=== PATIENT | female | born 1935 | race Two or more races ===

== ENCOUNTER 2019-10-27 05:55 | Inpatient (IN) | payer OTHER ==
[2019-10-25 11:46] VITALS: BMI 32.3
[2019-10-27] MEDS ORDERED: LOCK ITEM NR ONE ×2 (06:36→06:45)
[2019-10-27] MEDS ORDERED: MIDAZOLAM HCL 2 MG/2 ML SINGLE DOSE VIAL ONE (06:49)
[2019-10-27] MEDS ORDERED: SODIUM CHLORIDE 0.9% P/F 10 ML VIAL IJ ONE (06:49)
[2019-10-27] MEDS ORDERED: BUPIVACAINE LIPOSOME/PF (EXPAREL) 266 MG/20 ML VIAL ONE (06:49)
[2019-10-27] MEDS ORDERED: EPHEDRINE SULFATE/0.9% NACL/PF 50 MG/10 ML SYRINGE NR ONE (09:20)
[2019-10-27] MEDS ORDERED: PROPOFOL 20 ML ONE ×2 (09:20)
[2019-10-27] MEDS ORDERED: ROCURONIUM BROMIDE 50 MG/5 ML SYRINGE ONE (09:20)
[2019-10-27] MEDS ORDERED: TRANEXAMIC ACID 1000 MG/10 ML VIAL ONE ×2 (09:58)
[2019-10-27] MEDS ORDERED: SEVOFLURANE 250 ML BTL ONE (10:04)
[2019-10-27] MEDS ORDERED: ESMOLOL HCL 100,000 MCG/10 ML VIAL ONE (10:05)
[2019-10-27] MEDS ORDERED: KETOROLAC TROMETHAMINE 30 MG/1 ML VIAL ONE (12:02)
[2019-10-27] MEDS ORDERED: DEXAMETHASONE SOD PHOSPHATE 4 MG/1 ML VIAL ONE (12:02)
[2019-10-27] MEDS ORDERED: VANCOMYCIN 1,000 MG VIAL (RESTRICTED TO ID ONLY) ONE (12:02)
[2019-10-27] MEDS ORDERED: ceFAZolin SODIUM 1 GM VIAL ONE (12:02)
[2019-10-27] MEDS ORDERED: ONDANSETRON 4 MG/2 ML VIAL ONE (12:02)
[2019-10-27] MEDS ORDERED: BENZOIN/ALOE VERA/STORAX/TOLU 58 ML BOTTLE ONE (12:05)
[2019-10-27] MEDS ORDERED: MAG HYDROX/AL HYDROX/SIMETH 30 ML UNIT-DOSE CUP PO PRN (12:10)
[2019-10-27] MEDS ORDERED: ONDANSETRON 4 MG/2 ML VIAL IVPUSH PRN ×2 (12:10→12:52)
[2019-10-27] MEDS ORDERED: MAGNESIUM HYDROX 2400MG/30ML ORAL SUSPENSION 30 ML CUP PO PRN (12:10)
[2019-10-27] MEDS ORDERED: NEOSTIGMINE METHYLSULFATE 0.5 MG/ML - 10 ML MDV ONE (12:14)
[2019-10-27] MEDS ORDERED: LACTATED RINGERS SOLUTION 1,000 ML IV SCH (12:15)
--- NOTE | 2019-10-27 12:19 | PN ---
Progress Note (short form) - Note Progress Note: 84F s/p revision RIGHT total knee replacement POD #0. -Pain control: per anesthesia team. -DVT PPx: -Chemical: ASA 81mg PO BID x 6 weeks. -Mechanical: CÉSAR's, SCD's. -Incentive spirometry q15 min. -PT/OT/Rehab, OOB. -WBAT RLE. -Antibiotics: Ancef q6h x 3 post op doses. -f/u post-op trial of void. -Diet as tolerated. -Keep dressing clean & dry. -Monitor drain output. -Care per medical hospitalist team. -f/u [facility] [place] office 7-10 days following hospital discharge; call for appointment; . -Will follow. Priyank Burris MD (Orthopaedic Surgery).
--- NOTE | 2019-10-27 12:20 | OP ---
Operative Note - Note: Operative Date: 10/27/19 Pre-Operative Diagnosis: Osteolysis and loosening right TKA Operation: Single stage revision right TKA all components except patellar button Implants: [place] as charted Post-Operative Diagnosis: Same as Pre-op Surgeon: Priyank Burris Seo Intern: Matti Burris Anesthesiologist/SENIOR ENERGY MARKET COORDINATOR: John Orozco Anesthesia: Spinal Specimens Removed: Implants, bone, soft tissue Estimated Blood Loss (mls): 0 Drains & Tubes with Location: 1 x deep HemoVac Operative Report Dictated: Yes
[2019-10-27] MEDS ORDERED: oxyCODONE HCL 5 MG TABLET PO PRN (12:52)
[2019-10-27] MEDS ORDERED: PROMETHAZINE HCL 25 MG/1 ML VIAL IVPUSH PRN (12:52)
--- NOTE | 2019-10-27 13:34 | HP ---
HISTORY OF PRESENT ILLNESS: 84 year-old female with a PMH significant for coronary artery disease, CHF, CVA, asthma, bilateral OA knees s/p bilateral knee replacements, now s/p single stage revision right TKA on 10/27/[address] Burris. Recent Travel: No PAST MEDICAL HISTORY: Coronary artery disease Asthma CVA CHF Bilateral osteoarthritis knees PAST SURGICAL HISTORY: Bilateral knee replacements THAI Social History: Smoking: never Alcohol: no Drugs: no Family history: Mother DM; brother kidney cancer; breast cancer on mother's side Allergies aspirin Allergy (Verified 10/27/19 07:06) DOESN'T TAKE DUE TO SICKLE CELL TRAIT HOME MEDICATIONS: Home Medications Medication Instructions Recorded Amlodipine Besylate [Norvasc -] 5 mg PO DAILY 10/25/19 Ca/D3/Mag Ox/Zinc/Sheep Sorter/Owen/Bor 1 each PO DAILY 10/25/19 [Calcium 600+D3 Plus Caplet] Folic Acid 1 mg PO DAILY 10/25/19 Multivitamin [Multivitamins] 1 each PO DAILY 10/25/19 REVIEW OF SYSTEMS CONSTITUTIONAL: Absent: fever, chills, diaphoresis, generalized weakness, malaise, loss of appetite, weight change HEENT: Absent: rhinorrhea, nasal congestion, throat pain, throat swelling, difficulty swallowing, mouth swelling, ear pain, eye pain, visual changes CARDIOVASCULAR: Absent: chest pain, syncope, palpitations, irregular heart rate, lightheadedness, peripheral edema RESPIRATORY: Absent: cough, shortness of breath, dyspnea with exertion, orthopnea, wheezing, stridor, hemoptysis GASTROINTESTINAL: Absent: abdominal pain, abdominal distension, nausea, vomiting, diarrhea, constipation, melena, hematochezia GENITOURINARY: Absent: dysuria, frequency, urgency, hesitancy, hematuria, flank pain, genital pain MUSCULOSKELETAL: Absent: myalgia, arthralgia, joint swelling, back pain, neck pain SKIN: Absent: rash, itching, pallor HEMATOLOGIC/IMMUNOLOGIC: Absent: easy bleeding, easy bruising, lymphadenopathy, frequent infections ENDOCRINE: Absent: unexplained weight gain, unexplained weight loss, heat intolerance, cold intolerance NEUROLOGIC: Absent: headache, focal weakness or paresthesias, dizziness, unsteady gait, seizure, mental status changes, bladder or bowel incontinence PSYCHIATRIC: Absent: anxiety, depression, suicidal or homicidal ideation, hallucinations. PHYSICAL EXAMINATION Vital Signs - 24 hr 10/27/19 10/27/19 10/27/19 07:07 12:45 12:50 Temperature 97.9 F 97.7 F Pulse Rate 61 76 72 Respiratory 16 17 12 Rate Blood Pressure 144/78 108/61 127/69 O2 Sat by Pulse 98 97 100 Oximetry (%) 10/27/19 10/27/19 10/27/19 12:55 13:00 13:15 Temperature Pulse Rate 77 76 76 Respiratory 12 14 13 Rate Blood Pressure 116/63 119/65 119/65 O2 Sat by Pulse 100 100 100 Oximetry (%) GENERAL: Awake, alert, and fully oriented, in no acute distress. HEAD: Normal with no signs of trauma. EYES: Pupils equal, round and reactive to light, extraocular movements intact, sclera anicteric, conjunctiva clear. No lid lag. EARS, NOSE, THROAT: Ears normal, nares patent, oropharynx clear without exudates. Moist mucous membranes. NECK: Normal range of motion, supple without lymphadenopathy, JVD, or masses. LUNGS: Breath sounds equal, clear to auscultation bilaterally. No wheezes, and no crackles. No accessory muscle use. HEART: Regular rate and rhythm, normal S1 and S2 without murmur, rub or gallop. ABDOMEN: Soft, nontender, not distended, normoactive bowel sounds, no guarding, no rebound, no masses. No hepatomegaly or splenomegaly. MUSCULOSKELETAL: Normal range of motion at all joints. No bony deformities or tenderness. No CVA tenderness. UPPER EXTREMITIES: 2+ pulses, warm, well-perfused. No cyanosis. No clubbing. No peripheral edema. RLE: Surgical dressings c/d/i; ice pack; Hemovac drain; can flex/extend toes, sensory intact NEUROLOGICAL: Cranial nerves II-XII intact. Normal speech. Walking steadily with PT using walker Pre op BUN 20 Cr 1.1 Hgb 13.7 Intra op Vanc 1g x 1 Cefazolin 2g x 1 EBL <100mL LR 1,200mL ASSESSMENT/PLAN 84 year-old female with a PMH significant for coronary artery disease, CHF, CVA, asthma, bilateral OA knees s/p bilateral knee replacements, now s/p single stage revision right TKA 10/27/[address] Burris. Right total knee artroplasty revision --POD #0 --perioperative antibiotics per surgery --pain management per surgery --protonix --bowel regimen --incentive spirometry --Hemovac drain, monitor output --subq lovenox 30mg BID Coronary artery disease --continue amlodipine CHF, NOS --not on diuretics Asthma --amended home meds to include Dulera BID; Symbicort formulary substitute FEN Fluids: LR@125mL/hr Electrolytes: replete as indicated Nutrition: regular diet DVT prophylaxis: OOB, ambulation, SCDs, TEDs, subq lovenox Physical therapy Dispo: continues to require inpatient care. Full code. Family Medical History Family History: As Documented Visit type - Medication Review Med list reviewed for High Risk Meds patients 65 and older: Yes - Emergency Visit Emergency Visit: No - New Patient This patient is new to me today: Yes Date on this admission: 10/28/19 - Critical Care Critical Care patient: No
[2019-10-27] MEDS: ACETAMINOPHEN 325 MG TABLET (FP) PO SCH ×2 (13:35→18:05)
[2019-10-27] MEDS ORDERED: ACETAMINOPHEN 325 MG TABLET (FP) ONE (13:36)
--- NOTE | 2019-10-27 13:43 | OP ---
DATE OF OPERATION: 10/27/2019 SURGEON: Priyank Burris MD STEM ROLLER OPERATOR: Matti Burris MD PREOPERATIVE DIAGNOSIS: Loosening right total knee arthroplasty (old Rosanne). POSTOPERATIVE DIAGNOSIS: Loosening right total knee arthroplasty (old Rosanne). OPERATIVE PROCEDURE: 1. Revision right total knee replacement, femoral and tibial components. (88030 ) ANESTHESIA: General. Attempted spinal failed. ANTIBIOTICS GIVEN: Ancef 2 g, 1 g vancomycin preop, 1 g Ancef given at the end of the procedure. TOURNIQUET TIME: Two hours 40 minutes. DESCRIPTION OF PROCEDURE: Patient correctly identified, brought to the operating room. Right lower extremity was prepped and draped in the routine manner with Betadine scrub solution, wiped off with alcohol, DuraPrep applied. Timeout was called. Imaging was available for intraoperative evaluation. The incision made midline through subcutaneous tissue to the fascia of the quadriceps. The tissues were dissected off to create about a 3-cm pocket that was just off the medial aspect of the patellar ligament as it curved. Parapatellar incision was made alongside the medial aspect of the tibia, alongside the tibial tubercle. On opening the knee, extensive inflammatory-type soft tissue changes noted, this all due to polyethylene wear. The femoral component was macroscopically loose. The femoral component was removed with no difficulty, but under the femoral component at the bone/cement interface, extensive osteolysis had occurred both the medial femoral condyles, eventually destroying both medial femoral condyles, resulting in just a shell of bone surrounding the defect. The tibial tray was removed also with not much difficulty. The broken up components of the cement mantle of the tibia noted. To start, once the implants had been explanted and removed and all cement removed, we utilized osteotomes as well as cement-removing gouges and reverse hooks as well as curets to clear the bone completely of cement and fibrous reactive tissue. Reaming of the femur was to size 14. Reaming of the tibia was to size 11. After clearance of all implants and noting the difference between the flexion-extension gaps, the appropriate components were built up. The tibial cut was made approximately 0.5 cm below the original joint line to rid all the diseased proximal bone bed appropriately so that cementing of the new implant would be on healthy tissue and healthy bone bed. The component sizes measured size 1 femur with a 150-mm length x 11 girth stem. The tibia measured size 1 with a 100, size 9 girth stem. The femoral buildup distally was 1 cm buildup on the medial side and 1.5 cm on the lateral side. The tibial buildup was 1-cm block on the undersurface of the tibia. The tibial component was seated with the appropriate dialed-in rotation of the tibial component to match the intermedullary canal with the [employer] system. Once we were happy with the implant insertion of the trial components, the bone beds were then once again thoroughly cleansed by removing all fibrous tissue and thorough pulse lavage performed. Sponges were placed in the intermedullary canal. Cement was mixed and a 1-stage cementing of the femur and tibia performed. The cement was cured. The extraneous cement was then removed. The knee was brought into full extension with a size 13 polyethylene buildup and liner. The flexion was unimpeded to 120 degrees. The lateral side of the femur required a small distal lateral release in order to disallow any tilting of the patella component. The patella itself was left in situ, was solidly fixed and uncomplicated. A lateral surface tibia was trimmed appropriately to facilitate its articulation. A size 13 TS polyethylene liner was eventually placed on the tibial tray. Full extension, full flexion to 130 degrees, complete stability in the coronal sagittal plane, shuck test negative. Closure after thorough lavage as follows: This was a complex wound closure because of numerous layers. The fascia, patellar tendon No. 1 Vicryl; fascia 1 Vicryl; subcutaneous in layers, 1 and 2-0 Vicryl; skin andrea. Drainage: 1/8-inch Hemovac x1. Postop x-rays revealed excellent seating of the implants. No complications. MD NIKO Welsh/[id number] [facility]
[2019-10-27] MEDS ORDERED: oxyCODONE HCL 5 MG TABLET ONE (13:51)
[2019-10-27] MEDS: oxyCODONE HCL 5 MG TABLET PO PRN (15:07)
[2019-10-27] MEDS: CEFAZOLIN 1 GM/D5W 1 GM/50 ML BAG IVPB SCH ×2 (18:03→23:11)
[2019-10-27] MEDS: ENOXAPARIN NA (PORCINE) 30 MG/0.3 ML DISP.SYRIN SQ SCH (21:14)
[2019-10-27] MEDS: SENNOSIDES/DOCUSATE COMBO (SENNA PLUS) TABLET (UD) PO SCH (21:15)
[2019-10-27] MEDS: LACTOBACILLUS ACIDOPHILUS 1 TABLET PO SCH (21:15)
[2019-10-27] MEDS ORDERED: ASPIRIN 81 MG CHEWABLE TABLETS PO SCH (22:00)
[2019-10-28] MEDS: ACETAMINOPHEN 325 MG TABLET (FP) PO SCH ×4 (01:09→20:00)
[2019-10-28] MEDS: CEFAZOLIN 1 GM/D5W 1 GM/50 ML BAG IVPB SCH (05:59)
--- NOTE | 2019-10-28 07:37 | PN ---
Progress Note (short form) - Note Progress Note: ORTHOPAEDIC SURGERY POD #1 No acute events since surgery per RN notes. Patient is seated in chair at bedside with legs in extension (towel roll under ankles). Ice pack in place. C/o incisional tenderness. Adequate pain control with medications ordered. Denies n/v/f/c, CP, palpitations, SOB or HERRON. Denies numbness/tingling to RLE. Last Vital Signs Temp Pulse Resp BP Pulse Ox 98.4 F 74 18 111/63 96 10/28/19 06:00 10/28/19 06:00 10/28/19 06:00 10/28/19 06:00 10/28/19 06:00 Hemovac Output 10/27/19 10/27/19 10/28/19 17:41 22:41 06:00 Right Knee 45 65 50 PE Gen: alert. nad Pulm: unlabored respirations on room air Cor: rrr RLE: primary surgical dressing c/d/i. Hemovac on suction (serosanguinous). SCDs bilat. DP/PT bilat. Feet warm. Reluctant to flex knee secondary to pain. Problem List - Problems (1) Status post right knee replacement Assessment/Plan: POD #1 s/p s/p Single stage revision right TKA all components except patellar button -Pain control: per anesthesia team. -DVT PPx: -Chemical: ASA 81mg PO BID x 6 weeks. -Mechanical: CÉSAR's, SCD's. -Incentive spirometry q15 min. -PT/OT/Rehab, OOB. -WBAT RLE. -Diet as tolerated. -Keep dressing clean & dry. -Monitor drain output. Will be dc'd tomorrow after her afternoon PT session -Care per medical hospitalist team. -f/u [facility] [place] office 7-10 days following hospital discharge; call for appointment; . -Will follow. Above plan discussed with Dr. Matti Burris and agrees Code(s): Z96.651 - PRESENCE OF RIGHT ARTIFICIAL KNEE JOINT
[2019-10-28] MEDS: oxyCODONE HCL 5 MG TABLET PO PRN ×2 (07:56→13:00)
[2019-10-28 08:11] LABS: HEMATOCRIT 31.5 % (32.4-45.2); HEMOGLOBIN 10.4 GM/dl (10.7-15.3); MCH 27.6 pg (25.7-33.7); MCHC 33.1 g/dl (32.0-36.0); MEAN CELL VOLUME 83.5 fl (80-96); PLATELET COUNT 197 K/MM3 (134-434); RBC 3.77 M/mm3 (3.60-5.2); RDW 13.9 % (11.6-15.6); WHITE BLOOD COUNT 8.9 K/mm3 (4.0-10.8)
[2019-10-28 08:12] LABS: CALCIUM 8.7 mg/dl (8.5-10); POTASSIUM 4.3 mmol/L (3.5-5.1)
--- NOTE | 2019-10-28 08:47 | PN ---
Progress Note (short form) - Note Progress Note: 84F POD1 s/p revision right TKR under GA-ETT with peripheral nerve blocks. Pt states pain is moderately controlled with current regimen and denies any anesthetic complications. AVSS. Continue current regimen.
[2019-10-28] MEDS: SENNOSIDES/DOCUSATE COMBO (SENNA PLUS) TABLET (UD) PO SCH ×2 (09:12→21:22)
[2019-10-28] MEDS: PANTOPRAZOLE 40 MG TABLET PO SCH (09:12)
[2019-10-28] MEDS: amLODIPine BESYLATE 5 MG TABLET (FP) PO SCH (09:12)
[2019-10-28] MEDS: ENOXAPARIN NA (PORCINE) 30 MG/0.3 ML DISP.SYRIN SQ SCH ×2 (09:13→21:30)
[2019-10-28] MEDS: LACTOBACILLUS ACIDOPHILUS 1 TABLET PO SCH ×2 (09:17→21:22)
--- NOTE | 2019-10-28 12:46 | PN ---
Physical Exam: SUBJECTIVE: Patient seen and examined OBJECTIVE: Vital Signs Period Temp Pulse Resp BP Sys/Adams Pulse Ox Last 24 Hr 97.7 F-98.4 F 71-89 12-18 104-127/57-75 96-100 GENERAL: The patient is awake, alert, and fully oriented, in no acute distress. HEAD: Normal with no signs of trauma. EYES: PERRL, extraocular movements intact, sclera anicteric, conjunctiva clear. No ptosis. ENT: Ears normal, nares patent, oropharynx clear without exudates, moist mucous membranes. NECK: Trachea midline, full range of motion, supple. LUNGS: Breath sounds equal, clear to auscultation bilaterally, no wheezes, no crackles, no accessory muscle use. HEART: Regular rate and rhythm, S1, S2 without murmur, rub or gallop. ABDOMEN: Soft, nontender, nondistended, normoactive bowel sounds, no guarding, no rebound, no hepatosplenomegaly, no masses. EXTREMITIES: 2+ pulses, warm, well-perfused, no edema. NEUROLOGICAL: Cranial nerves II through XII grossly intact. Normal speech, gait not observed. PSYCH: Normal mood, normal affect. SKIN: Warm, dry, normal turgor, no rashes or lesions noted Laboratory Results - last 24 hr 10/28/19 10/28/19 07:03 07:03 WBC 8.9 RBC 3.77 Hgb 10.4 L Hct 31.5 L MCV 83.5 MCH 27.6 MCHC 33.1 RDW 13.9 Plt Count 197 MPV 9.0 Sodium 140 Potassium 4.3 Chloride 106 Carbon Dioxide 23 Anion Gap 11 BUN 20.0 H Creatinine 1.0 Est GFR (CKD-EPI)AfAm 59.08 Est GFR (CKD-EPI)NonAf 50.97 Random Glucose 110 H Calcium 8.7 Active Medications Generic Name Dose Route Start Last Admin Trade Name Freq PRN Reason Stop Dose Admin Acetaminophen 650 mg 10/27/19 13:00 10/28/19 06:00 Tylenol - PO 10/30/19 12:59 650 mg Q6H MICHELLE Administration Al Hydroxide/Mg Hydroxide 30 ml 10/27/19 12:10 Mylanta Oral Suspension - PO Q4H PRN DYSPEPSIA Amlodipine Besylate 5 mg 10/28/19 10:00 10/28/19 09:12 Norvasc - PO 5 mg DAILY MICHELLE Administration Enoxaparin Sodium 30 mg 10/27/19 22:00 10/28/19 09:13 Lovenox - SQ 30 mg BID MICHELLE Administration Lactobacillus Acidophilus 1 tab 10/27/19 22:00 10/28/19 09:17 Bacid - PO 1 tab BID MICHELLE Administration Magnesium Hydroxide 30 ml 10/27/19 12:10 Milk Of Magnesia - PO PRN PRN CONSTIPATION Ondansetron HCl 4 mg 10/27/19 12:52 Zofran Injection IVPUSH Q6H PRN NAUSEA AND/OR VOMITING Oxycodone HCl 5 mg 10/27/19 12:52 10/27/19 13:50 Roxicodone - PO 5 mg Q3H PRN Administration PAIN LEVEL 1-5 Oxycodone HCl 10 mg 10/27/19 12:52 10/28/19 07:56 Roxicodone - PO 10 mg Q3H PRN Administration PAIN LEVEL 6-10 Pantoprazole Sodium 40 mg 10/28/19 10:00 10/28/19 09:12 Protonix - PO 40 mg DAILY MICHELLE Administration Senna/Docusate Sodium 2 tablet 10/27/19 22:00 10/28/19 09:12 Pericolace - PO 2 tablet BID MICHELLE Administration ASSESSMENT/PLAN:
[2019-10-28] MEDS ORDERED: PATIENT'S OWN MEDICATION (NON-FORMULARY) (Mometasone/Formoterol [Dulera 200 Mcg-5 Mcg Inha IH SCH (13:00)
--- NOTE | 2019-10-28 14:23 | DS ---
"Physical Exam: SUBJECTIVE: Patient seen and examined. OBJECTIVE: Vital Signs Period Temp Pulse Resp BP Sys/Adams Pulse Ox Last 24 Hr 97.8 F-98.4 F 71-89 18-18 104-126/57-75 96-100 PHYSICAL EXAM GENERAL: Awake, alert, and fully oriented, in no acute distress. HEAD: Normal with no signs of trauma. EYES: Pupils equal, round and reactive to light, extraocular movements intact, sclera anicteric, conjunctiva clear. No lid lag. EARS, NOSE, THROAT: Ears normal, nares patent, oropharynx clear without exudates. Moist mucous membranes. NECK: Normal range of motion, supple without lymphadenopathy, JVD, or masses. LUNGS: Breath sounds equal, clear to auscultation bilaterally. No wheezes, and no crackles. No accessory muscle use. HEART: Regular rate and rhythm, normal S1 and S2 without murmur, rub or gallop. ABDOMEN: Soft, nontender, not distended, normoactive bowel sounds, no guarding, no rebound, no masses. No hepatomegaly or splenomegaly. MUSCULOSKELETAL: Normal range of motion at all joints. No bony deformities or tenderness. No CVA tenderness. UPPER EXTREMITIES: 2+ pulses, warm, well-perfused. No cyanosis. No clubbing. No peripheral edema. RLE: Surgical dressings c/d/ NEUROLOGICAL: Cranial nerves II-XII intact. Normal speech. LABS Laboratory Results - last 24 hr 10/28/19 10/28/19 07:03 07:03 WBC 8.9 RBC 3.77 Hgb 10.4 L Hct 31.5 L MCV 83.5 MCH 27.6 MCHC 33.1 RDW 13.9 Plt Count 197 MPV 9.0 Sodium 140 Potassium 4.3 Chloride 106 Carbon Dioxide 23 Anion Gap 11 BUN 20.0 H Creatinine 1.0 Est GFR (CKD-EPI)AfAm 59.08 Est GFR (CKD-EPI)NonAf 50.97 Random Glucose 110 H Calcium 8.7 HOSPITAL COURSE: Date of Admission:10/27/19 Date of Discharge: 10/29/19 84 year-old female with a PMH significant for coronary artery disease, CHF, CVA, asthma, bilateral OA knees s/p bilateral knee replacements, now s/p single stage revision right TKA 10/27/[address] Burris. Right total knee artroplasty revision --perioperative antibiotics complete --pain well-managed with PO meds --subq lovenox 30mg BID x 6 weeks; education done with patient and daughter Coronary artery disease --continued amlodipine CHF, NOS --not on diuretics Asthma --amended home meds to include Dulera BID; Symbicort formulary substitute ISTOP Search Terms: Germania Kwon, 1935Search Date: 10/28/2019 14:27:14 PM The Drug Utilization Report below displays all of the controlled substance prescriptions, if any, that your patient has filled in the last twelve months. The information displayed on this report is compiled from pharmacy submissions to the Department, and accurately reflects the information as submitted by the pharmacies. This report was requested by: Renetta Guerrero | Reference #: [id number] There are no results for the search terms that you entered. Minutes to complete discharge: 35 Discharge Summary Problems reviewed: Yes Reason For Visit: [facility] Current Active Problems Status post right knee replacement (Acute) Condition: Improved - Instructions Diet, Activity, Other Instructions: Dr. Burris Discharge Instructions for Knee Replacement Post Operative Instructions Physical activity Physical Therapist will come to your home for the first 5 days. You will be set up with outpatient PT at your first post-operative visit. Use assistive devices for ambulation at all times. Weight bearing as tolerated on your surgical side. Do not put pillow under knee. May put pillow under heel. Wound care Leave your surgical dressing in place. Do not change the dressing until seen by your surgeon in the office. No baths or showers. Do not submerge your incision. Do not apply any ointments or lotions to your incision. Please call the office if your dressing is soiled/dirty or is falling off. Apply Graduated Compression Stockings (TEDS) to both lower extremities - remove daily for hygiene ONLY. Diet There are no dietary restrictions. Eat healthy, high-fiber foods. Drink 6 to 8 glasses of liquid each day. This will assist in keeping your bowels are regular. Pain management Any pain prescription medication ordered should be taken as prescribed for moderate to severe pain. Do not take additional Tylenol while taking Percocet. Take lovenox 30mg SQ BID for a total of 6 weeks to prevent blood clots. Call Dr. Burris for any of the following: Severe pain not relieved by medication Fever of 101 or higher Excessive bleeding or drainage on dressing Inability to urinate If you experience chest pain or shortness of breath, please seek emergency care immediately. Please call the office at to confirm your post-op appointment for the week following surgery. Referrals: Priyank Burris MD [Staff Physician] - Disposition: HOME - Home Medications Comprehensive Discharge Medication List: Ambulatory Orders Amlodipine Besylate [Norvasc -] 5 mg PO DAILY 10/25/19 Ca/D3/Mag Ox/Zinc/Automation/Controls Manager/Owen/Bor [Calcium 600+D3 Plus Caplet] 1 each PO DAILY 10/25/19 Folic Acid 1 mg PO DAILY 10/25/19 Multivitamin [Multivitamins] 1 each PO DAILY 10/25/19 Mometasone/Formoterol [Dulera 200 Mcg-5 Mcg Inhaler] 2 puff BID 10/28/19 Prescription Drug Monitoring Program (I-STOP) results: I-STOP reviewed and no issues identified This patient is new to me today: No Emergency Visit: No Critical Care patient: No - Discharge Referral Referred to [facility] No"
--- NOTE | 2019-10-28 14:33 | PN ---
Physical Exam: SUBJECTIVE: Patient seen and examined OBJECTIVE: Vital Signs Period Temp Pulse Resp BP Sys/Adams Pulse Ox Last 24 Hr 97.8 F-98.4 F 71-88 18-18 104-123/57-68 96-100 GENERAL: The patient is awake, alert, and fully oriented, in no acute distress. HEAD: Normal with no signs of trauma. EYES: PERRL, extraocular movements intact, sclera anicteric, conjunctiva clear. No ptosis. ENT: Ears normal, nares patent, oropharynx clear without exudates, moist mucous membranes. NECK: Trachea midline, full range of motion, supple. LUNGS: Breath sounds equal, clear to auscultation bilaterally, no wheezes, no crackles, no accessory muscle use. HEART: Regular rate and rhythm, S1, S2 without murmur, rub or gallop. ABDOMEN: Soft, nontender, nondistended, normoactive bowel sounds, no guarding, no rebound, no hepatosplenomegaly, no masses. EXTREMITIES: 2+ pulses, warm, well-perfused, no edema. NEUROLOGICAL: Cranial nerves II through XII grossly intact. Normal speech, gait not observed. PSYCH: Normal mood, normal affect. SKIN: Warm, dry, normal turgor, no rashes or lesions noted Laboratory Results - last 24 hr 10/28/19 10/28/19 07:03 07:03 WBC 8.9 RBC 3.77 Hgb 10.4 L Hct 31.5 L MCV 83.5 MCH 27.6 MCHC 33.1 RDW 13.9 Plt Count 197 MPV 9.0 Sodium 140 Potassium 4.3 Chloride 106 Carbon Dioxide 23 Anion Gap 11 BUN 20.0 H Creatinine 1.0 Est GFR (CKD-EPI)AfAm 59.08 Est GFR (CKD-EPI)NonAf 50.97 Random Glucose 110 H Calcium 8.7 Active Medications Generic Name Dose Route Start Last Admin Trade Name Freq PRN Reason Stop Dose Admin Acetaminophen 650 mg 10/27/19 13:00 10/28/19 12:59 Tylenol - PO 10/30/19 12:59 650 mg Q6H MICHELLE Administration Al Hydroxide/Mg Hydroxide 30 ml 10/27/19 12:10 Mylanta Oral Suspension - PO Q4H PRN DYSPEPSIA Amlodipine Besylate 5 mg 10/28/19 10:00 10/28/19 09:12 Norvasc - PO 5 mg DAILY MICHELLE Administration Budesonide/Formoterol Fumarate 2 puff 10/28/19 22:00 Symbicort 160/4.5mcg - IH BID MICHELLE Enoxaparin Sodium 30 mg 10/27/19 22:00 10/28/19 09:13 Lovenox - SQ 30 mg BID MICHELLE Administration Lactobacillus Acidophilus 1 tab 10/27/19 22:00 10/28/19 09:17 Bacid - PO 1 tab BID MICHELLE Administration Magnesium Hydroxide 30 ml 10/27/19 12:10 Milk Of Magnesia - PO PRN PRN CONSTIPATION Ondansetron HCl 4 mg 10/27/19 12:52 Zofran Injection IVPUSH Q6H PRN NAUSEA AND/OR VOMITING Oxycodone HCl 5 mg 10/27/19 12:52 10/27/19 13:50 Roxicodone - PO 5 mg Q3H PRN Administration PAIN LEVEL 1-5 Oxycodone HCl 10 mg 10/27/19 12:52 10/28/19 13:00 Roxicodone - PO 10 mg Q3H PRN Administration PAIN LEVEL 6-10 Pantoprazole Sodium 40 mg 10/28/19 10:00 10/28/19 09:12 Protonix - PO 40 mg DAILY MICHELLE Administration Senna/Docusate Sodium 2 tablet 10/27/19 22:00 10/28/19 09:12 Pericolace - PO 2 tablet BID MICHELLE Administration Pre op BUN 20 Cr 1.1 Hgb 13.7 Intra op Vanc 1g x 1 Cefazolin 2g x 1 EBL <100mL LR 1,200mL ASSESSMENT/PLAN 84 year-old female with a PMH significant for coronary artery disease, CHF, CVA, asthma, bilateral OA knees s/p bilateral knee replacements, now s/p single stage revision right TKA 10/27/[address] Burris. Right total knee artroplasty revision --POD #1 --perioperative antibiotics per surgery --pain management per surgery --protonix --bowel regimen --incentive spirometry --Hemovac drain, monitor output --subq lovenox 30mg BID --Hgb 10.4, pre op 13.7; monitor Hemovac drain output; repeat h/h in am Coronary artery disease --continue amlodipine CHF, NOS --not on diuretics Asthma --amended home meds to include Dulera BID; Symbicort formulary substitute FEN Fluids: PO intake adequate Electrolytes: replete as indicated Nutrition: regular diet DVT prophylaxis: OOB, ambulation, SCDs, TEDs, subq lovenox Physical therapy Dispo: continues to require inpatient care. Full code. Visit type - Emergency Visit Emergency Visit: No - New Patient This patient is new to me today: No - Critical Care Critical Care patient: No - Medication Review Med list reviewed for High Risk Meds patients 65 and older: Yes
[2019-10-28] MEDS ORDERED: PT OWN MED DRAWER 7, Y5N ONE (21:14)
[2019-10-28] MEDS: BUDESONIDE/FORMETEROL FUMARATE 160/4.5 mcg INHALER IH SCH (21:27)
[2019-10-29] MEDS: ACETAMINOPHEN 325 MG TABLET (FP) PO SCH ×3 (01:15→14:10)
[2019-10-29 08:20] LABS: HEMOGLOBIN 9.1 GM/dl (10.7-15.3); MCH 27.3 pg (25.7-33.7); MCHC 32.3 g/dl (32.0-36.0); MEAN CELL VOLUME 84.7 fl (80-96); PLATELET COUNT 181 K/MM3 (134-434); RBC 3.31 M/mm3 (3.60-5.2); RDW 13.4 % (11.6-15.6); WHITE BLOOD COUNT 8.9 K/mm3 (4.0-10.8)
[2019-10-29 08:35] LABS: ALBUMIN 2.9 g/dl (3.4-5.0); BILIRUBIN,TOTAL 1.1 mg/dl (0.2-1); CALCIUM 8.4 mg/dl (8.5-10); MAGNESIUM 1.9 mg/dL (1.8-2.4); POTASSIUM 3.6 mmol/L (3.5-5.1); TOT PROT 5.3 g/dl (6.4-8.2)
[2019-10-29 10:10] VITALS: BP 124/53; PULSE 77; TEMP 99
[2019-10-29] MEDS: ENOXAPARIN NA (PORCINE) 30 MG/0.3 ML DISP.SYRIN SQ SCH (10:58)
[2019-10-29] MEDS: amLODIPine BESYLATE 5 MG TABLET (FP) PO SCH (10:59)
[2019-10-29] MEDS: PANTOPRAZOLE 40 MG TABLET PO SCH (10:59)
[2019-10-29] MEDS: BUDESONIDE/FORMETEROL FUMARATE 160/4.5 mcg INHALER IH SCH (11:00)
[2019-10-29] MEDS: LACTOBACILLUS ACIDOPHILUS 1 TABLET PO SCH (11:00)
[2019-10-29] MEDS: SENNOSIDES/DOCUSATE COMBO (SENNA PLUS) TABLET (UD) PO SCH (11:01)
--- NOTE | 2019-10-29 12:45 | PN ---
Progress Note (short form) - Note Progress Note: SURGERY No acute events since surgery per RN notes. Pt ambulated with PT. Patient is seated in chair at bedside with legs in extension (towel roll under ankles). Ice pack in place. C/o incisional tenderness. Adequate pain control with medications ordered. Denies n/v/f/c, CP, palpitations, SOB or HERRON. Denies numbness/tingling to RLE. Last Vital Signs Temp Pulse Resp BP Pulse Ox 99.0 F 77 20 124/53 L 99 10/29/19 10:00 10/29/19 10:00 10/29/19 10:00 10/29/19 10:00 10/29/19 10:00 CBC, BMP 10/29/19 07:25 10/29/19 07:25 PE Gen: alert. nad Pulm: unlabored respirations on room air Cor: rrr RLE: primary surgical dressing c/d/i. Hemovac on suction (serosanguinous). SCDs bilat. DP/PT bilat. Feet warm. Reluctant to flex knee secondary to pain. Problem List - Problems (1) Status post right knee replacement Assessment/Plan: POD #2 s/p s/p Single stage revision right TKA all components except patellar button Drain removed at bedside without incident, pt cleared for discharge home from surgical standpoint. -Pain control: per anesthesia team. -DVT PPx: -Chemical: Lovenox x 6 weeks. -Mechanical: CÉSAR's, SCD's. -Incentive spirometry q15 min. -PT/OT/Rehab, OOB. -WBAT RLE. -Diet as tolerated. -Keep dressing clean & dry. -Care per medical hospitalist team. -f/u [facility] [place] office 7-10 days following hospital discharge; call for appointment; . Above plan discussed with Dr. Burris and agrees
--- NOTE | 2019-10-29 17:02 | PATH ---
Surgical Pathology Report Patient Name: ROSA SINGH Med. Rec. #: [id number] /Age/Gender: 1935 (Age: 84) / F Account: [id number] Location: [facility] Taken: 10/27/2019 Received: 10/27/2019 Reported: 10/29/2019 Physicians: Priyank Burris M.D. Specimen(s) Received A: SYNOVIAL CAPSULE OF RIGHT KNEE (FS) B: RIGHT KNEE TISSUE AND BONES C: RIGHT KNEE EXPLANTS Clinical History Loose mechanical of right knee Intraoperative Consult Diagnosis Synovial capsule of right knee, frozen section: Up to two neutrophils in a rare high power field (HPF) in reimbursement representative tissue. Theodore Dozier M.D., 10/27/2019 Final Diagnosis A. SYNOVIAL CAPSULE, RIGHT KNEE, EXCISION (FS): FIBROSYNOVIAL TISSUE WITH RARE (~2) NEUTROPHILS IN RARE HIGH POWER [place] (HPF) WITH MARKED HISTIOCYTIC AND FOREIGN BODY GIANT CELL REACTION IN ADVERTISING VICE PRESIDENT TISSUE. B. KNEE, RIGHT, TISSUE AND BONES, REVISION OF TOTAL KNEE REPLACEMENT: HYPERPLASTIC FIBROSYNOVIAL TISSUE WITH DEGENERATIVE CHANGES, MARKED HISTIOCYTIC / GIANT CELL REACTION, DYSTROPHIC CALCIFICATIONS AND FEW (3-4) NEUTROPHILS IN RARE HIGH POWER [place] (HPF). BONE AND CARTILAGE WITH NO PATHOLOGIC FINDINGS. C. EXPLANTS, RIGHT KNEE, REMOVAL: HARDWARE, DESCRIBED (GROSS EXAMINATION ONLY). Electronically Signed Yaneth Dozier M.D. Gross Description A. Received fresh labeled "right knee synovial capsule frozen section," is a 4.6 x 2.5 x 0.8 cm portion of pink harrell and yellow harrell fibrous-appearing tissue. A frozen section is performed on reimbursement representative tissue. Bioinformaticist sections are submitted in 3 cassettes as follows: 1-frozen section residue; [id number] reimbursement representative tissue. B. Received in formalin labeled "right knee tissue and bones," is a 13.0 x 11.5 x 2.0 cm aggregate of harrell-yellow and jolly portions of bone and soft tissue admixed with cement material, consistent with knee bones. Bioinformaticist sections are submitted in one cassette, following decalcification. C. Received fresh labeled "right knee explants," are 3 jolly metallic and white plastic portions of hardware averaging 6.3 cm in greatest dimension, consistent with knee explants. No soft tissue is present. No sections are submitted, gross only. 10/27/2019 [facility]10/27/2019
== END 2019-10-29 16:05 | disposition home or self-care (01) | DRG 468 ==
LOC: FM/S 05:55
PROVIDERS: ADMIT Orthopaedic Surgery Orthopaedic Surgery of the Spine; ATTEND Orthopaedic Surgery Orthopaedic Surgery of the Spine
PROC: 0SRC0J9 Replacement of Right Knee Joint with Synthetic Substitute, Cemented, Open Approach (ICD-10-PCS; 2019-10-27)
PROC: 0SPC0JZ Removal of Synthetic Substitute from Right Knee Joint, Open Approach (ICD-10-PCS; principal; 2019-10-27 09:50)
DX: T84.032A Mechanical loosening of internal right knee prosthetic joint, initial encounter (principal); Y83.8 Other surgical procedures as the cause of abnormal reaction of the patient, or of later complication, without mention of misadventure at the time of the procedure; I25.10 Atherosclerotic heart disease of native coronary artery without angina pectoris; J45.909 Unspecified asthma, uncomplicated; Z96.653 Presence of artificial knee joint, bilateral; Z86.73 Personal history of transient ischemic attack (TIA), and cerebral infarction without residual deficits; I50.9 Heart failure, unspecified
CPT/HCPCS: 36415; 73560-TC-RT-FY; 80048; 80053; 83735; 85027; 88300-TC; 88304-TC; 88307-TC; 88311-TC; 88331-TC; 94760; 97010-GP; 97116-GP; 97163-GP